=== PATIENT | male | born 1955 | race Caucasian/White ===

== ENCOUNTER 2020-06-28 23:12 | Inpatient (IN) | payer MEDICARE, MEDICAID ==
[~2020-06-28] VITALS: Ht 154.9 cm; Wt 70.5 kg
[2020-06-28] MEDS ORDERED: TRIA1TAB3 PO (23:36)
[2020-06-29] VITALS (14 sets, daily range): BP systolic 96–164; BP diastolic 55–100
[2020-06-29] MEDS ORDERED: CefTRIAXone/D5W-Rocephin 1gm 50 ML IV ONE ×2 (00:05→05:40)
[2020-06-29 00:57] LABS: BASOPHILS # (AUTO) 0.2 X10'3 (0-0.2); BASOPHILS % (AUTO) 1.5 % (0-1); EOSINOPHILS # (AUTO) 0.1 X10'3 (0-0.9); EOSINOPHILS % (AUTO) 1.2 % (0-6); HEMATOCRIT 29.8 % (42.0-52.0); HEMOGLOBIN 10.4 g/dl (14.0-17.9); LYMPHOCYTES % (AUTO) 9.1 % (21-51); MEAN CORPUSCULAR HEMOGLOBIN 37.8 PG (27.0-31.0); MEAN CORPUSCULAR HGB CONC 34.9 g/dL (33.0-36.5); MEAN CORPUSCULAR VOLUME 108.3 FL (78-98); MEAN PLATELET VOLUME 9.9 FL (7.4-10.4); MONOCYTES # (AUTO) 1.3 X10'3 (0-0.9); NEUTROPHILS # (AUTO) 8.6 X10'3 (1.8-7.7); NEUTROPHILS % (AUTO) 76.2 % (42-75); PLATELET COUNT 75 X10'3 (140-440); RED BLOOD COUNT 2.75 X10'6 (4.70-6.10); RED CELL DISTRIBUTION WIDTH 14.6 % (11.5-14.5); WHITE BLOOD COUNT 11.3 X10'3 (4.5-11.0)
[2020-06-29] MEDS ORDERED: magnesium Cl slow-release 64mg tablet PO PRN (01:30)
[2020-06-29] MEDS ORDERED: magnesium 4gm in 100ml NS 100 ML IV PRN (01:30)
[2020-06-29] MEDS ORDERED: magnesium 2GM in 50ml NS 50 ML IV PRN (01:30)
[2020-06-29] MEDS ORDERED: potassium Cl 40MEQ/1/2NS 520ml 520 ML IV PRN ×2 (01:30)
[2020-06-29] MEDS ORDERED: potassium Cl 20 mEq SR tablet PO PRN ×2 (01:30)
[2020-06-29] MEDS: normal saline 1000ml 1,000 ML IV SCH ×3 (02:01→17:28)
[2020-06-29] MEDS: triamterene/HCTZ 37.5/25mg tablet PO SCH (08:00)
[2020-06-29 08:10] LABS: ALANINE AMINOTRANSFERASE 26 U/L (12-78); ALBUMIN 1.8 G/DL (3.4-5.0); ALKALINE PHOSPHATASE 113 IU/L (46-116); ANION GAP 11 (8-16); ASPARTATE AMINO TRANSFERASE 64 U/L (10-37); BILIRUBIN,TOTAL 3.7 MG/DL (0.1-1.0); BLOOD UREA NITROGEN 36 MG/DL (7-18); BUN/CREATININE RATIO 22.1 (5.4-32.0); CALCIUM 7.7 MG/DL (8.5-10.1); CHLORIDE 102 MMOL/L (99-107); CREATININE 1.63 MG/DL (0.60-1.10); GLUCOSE 68 MG/DL (70-104); POTASSIUM 4.2 MMOL/L (3.5-5.1); SODIUM 132 MMOL/L (135-145); TOTAL CARBON DIOXIDE 19.3 MMOL/L (24-32); eGFR 43 ML/MIN
[2020-06-29 08:11] LABS: ALBUMIN/GLOBULIN RATIO 0.3 (1.1-1.5); TOTAL PROTEIN 7.1 G/DL (6.4-8.2)
[2020-06-29] MEDS: K and/or MAG REPLACEMENT MC SCH ×2 (08:29→20:00)
[2020-06-29] MEDS: morphine 2 MG/ML inj. syringe IV PRN (11:34)
--- NOTE | 2020-06-29 12:22 | NUR ---
PT GIVEN BQACK TO YESSENIA BARNETT BY STEVENSON BARNETT CHARGE NURSE.
[2020-06-29] MEDS ORDERED: BUPIVAcaine/PF 2.5 mg/ml (0.25%) 30ml vial ONE (12:32)
[2020-06-29] MEDS ORDERED: LIDOcaine 2% (20mg/ml) 5ml vial ONE (12:50)
[2020-06-29] MEDS ORDERED: neostigmine methylsulfate 1 MG/ML 10ml vial ONE (12:50)
[2020-06-29] MEDS ORDERED: sevoflurane 250ml liquid IH ONE (12:50)
[2020-06-29] MEDS ORDERED: glycopyrrolate 0.2mg/ml inj ONE (12:50)
[2020-06-29] MEDS ORDERED: midazolam 1 mg/ML 2ml injection ONE (12:57)
[2020-06-29] MEDS ORDERED: fentaNYL /PF 50mcg/ml 5ml ampule ONE (12:57)
[2020-06-29] MEDS ORDERED: ondansetron/PF 4mg/2ml inj IV PRN (13:30)
[2020-06-29] MEDS ORDERED: morphine 2 MG/ML inj. syringe IV PRN (13:30)
[2020-06-29] MEDS ORDERED: ringers solution, lacted 1,000 ML IV SCH (13:30)
[2020-06-29] MEDS ORDERED: proCHLORperazine 10 MG/2 ml inj IV PRN (13:30)
[2020-06-29] MEDS ORDERED: morphine 4 MG/ML inj SYRINge IV PRN (13:30)
[2020-06-29] MEDS ORDERED: meperidine/PF 25mg/ml syringe IV PRN ×3 (13:30)
[2020-06-29] MEDS ORDERED: propofol inj 20 ML IV ONE (13:59)
[2020-06-29] MEDS ORDERED: rocuronium 10mg/ml inj IV ONE (13:59)
--- NOTE | 2020-06-29 14:55 | NUR ---
PATIENT HAS MET ALL CRITERIA FOR TRANSFER TO THE SURGICAL/[facility]/PCU/ORTHO/ICU FLOOR. VSS. DRESSINGS INTACT. BED LOW, CALL LIGHT PRESENT AND 2 RAILS UP. RN PRESENT TO ACCEPT CARE OF PATIENT AND REPORT HAS BEEN CALLED. ALL QUESTIONS ANSWERED TO ACCEPTING ANIBAL LITTLEJOHN. PAIN AT 1-2, PATIENT VSS. CARE TURNED OVER TO ANIBAL LITTLEJOHN. Addendum: 06/29/20 at 1518 by Omar Winkler - ANIBAL BARNETT Amended: Links added.
--- NOTE | 2020-06-29 15:20 | NUR ---
Received report from ANIBAL Nelson in recovery. Addendum: 06/29/20 at 1916 by Robert Pope RN Patient on 3L of O2 and satting at 93. Given 4mg of morphine and is sleeping hard. ESBL of 50ml. Patient is covid negative. Patient vitals are BP138/71 HR 105 Resp 15. Patient arrived asleep and slow to wake. He is oriented once he wakes and is a pleasant patient.
--- NOTE | 2020-06-29 18:00 | NUR ---
Problems reprioritized. Patient report given, questions answered & plan of care reviewed with ANIBAL Painter.
--- NOTE | 2020-06-29 18:30 | NUR ---
Patient in room [facility]. I have received report from BORIS BARNETT and had the opportunity to ask questions and assume patient care.
[2020-06-30] VITALS: BP 110/74
[2020-06-30] MEDS: normal saline 1000ml 1,000 ML IV SCH ×2 (03:05→14:21)
[2020-06-30 05:52] LABS: BASOPHILS % (AUTO) 0.4 % (0-1); EOSINOPHILS # (AUTO) 0.1 X10'3 (0-0.9); EOSINOPHILS % (AUTO) 1.5 % (0-6); HEMATOCRIT 25.6 % (42.0-52.0); LYMPHOCYTES # (AUTO) 1.5 X10'3 (1.1-4.8); LYMPHOCYTES % (AUTO) 15.7 % (21-51); MEAN CORPUSCULAR HEMOGLOBIN 38.7 PG (27.0-31.0); MEAN CORPUSCULAR VOLUME 110.5 FL (78-98); MEAN PLATELET VOLUME 9.8 FL (7.4-10.4); MONOCYTES # (AUTO) 1.4 X10'3 (0-0.9); MONOCYTES % (AUTO) 14.8 % (2-12); NEUTROPHILS # (AUTO) 6.5 X10'3 (1.8-7.7); NEUTROPHILS % (AUTO) 67.6 % (42-75); PLATELET COUNT 71 X10'3 (140-440); RED BLOOD COUNT 2.32 X10'6 (4.70-6.10); RED CELL DISTRIBUTION WIDTH 15.1 % (11.5-14.5); WHITE BLOOD COUNT 9.7 X10'3 (4.5-11.0)
[2020-06-30 06:15] LABS: ALANINE AMINOTRANSFERASE 26 U/L (12-78); ALBUMIN 1.6 G/DL (3.4-5.0); ALBUMIN/GLOBULIN RATIO 0.3 (1.1-1.5); ALKALINE PHOSPHATASE 104 IU/L (46-116); ANION GAP 10 (8-16); ASPARTATE AMINO TRANSFERASE 61 U/L (10-37); BILIRUBIN,TOTAL 3.3 MG/DL (0.1-1.0); BLOOD UREA NITROGEN 36 MG/DL (7-18); BUN/CREATININE RATIO 28.1 (5.4-32.0); CALCIUM 7.5 MG/DL (8.5-10.1); CHLORIDE 108 MMOL/L (99-107); CREATININE 1.28 MG/DL (0.60-1.10); MAGNESIUM 1.9 MG/DL (1.5-2.4); POTASSIUM 4.2 MMOL/L (3.5-5.1); SODIUM 137 MMOL/L (135-145); TOTAL CARBON DIOXIDE 18.6 MMOL/L (24-32); TOTAL PROTEIN 6.4 G/DL (6.4-8.2); eGFR 56 ML/MIN
[2020-06-30 06:18] LABS: GLUCOSE 50 MG/DL (70-104)
--- NOTE | 2020-06-30 06:30 | NUR ---
Problems reprioritized. Patient report given, questions answered & plan of care reviewed with OLVIN BARNETT.
--- NOTE | 2020-06-30 06:40 | NUR ---
PAGED DR. MILLAN FOR GLUCOSE OF 50 AND ASYMPTOMATIC AND WAS GIVEN YOGURT AND JUICE. AWAITING RESPONSE.
[2020-06-30 07:00] VITALS: BP 109/66
[2020-06-30] MEDS: K and/or MAG REPLACEMENT MC SCH ×2 (08:00→19:46)
[2020-06-30] MEDS: triamterene/HCTZ 37.5/25mg tablet PO SCH (09:07)
[2020-06-30] MEDS: CefTRIAXone 2gm/D5W 50ml BAG 50 ML IV SCH (09:07)
--- NOTE | 2020-06-30 09:54 | NUR ---
Patient in room [facility]. I have received report from Dora John RN and had the opportunity to ask questions and assume patient care.
[2020-06-30] MEDS: morphine 2 MG/ML inj. syringe IV PRN (10:59)
[2020-06-30 11:00] VITALS: BP 106/71
[2020-06-30] MEDS ORDERED: magnesium hydroxide 30ml (MOM) UD suspension PO PRN (12:45)
--- NOTE | 2020-06-30 18:13 | NUR ---
Problems reprioritized. Patient report given, questions answered & plan of care reviewed with Dora John RN.
--- NOTE | 2020-06-30 18:30 | NUR ---
Patient in room [facility]. I have received report from OLVIN BARNETT and had the opportunity to ask questions and assume patient care.
[2020-06-30] MEDS: lactobacillus rhamnosus 10,000 MMU CELLS/CAPSULE PO SCH (19:55)
[2020-06-30 20:00] VITALS: BP 115/76
[2020-07-01] VITALS: BP_SYST 118; BP_SYST 139; BP_DIAS 71; BP_DIAS 78
[2020-07-01] MEDS: normal saline 1000ml 1,000 ML IV SCH ×2 (00:33→13:30)
[2020-07-01] MEDS: morphine 2 MG/ML inj. syringe IV PRN ×2 (04:39→11:24)
--- NOTE | 2020-07-01 06:14 | NUR ---
Problems reprioritized. Patient report given, questions answered & plan of care reviewed with ALEJANDRO BARNETT.
[2020-07-01 06:15] LABS: BASOPHILS % (AUTO) 0.5 % (0-1); EOSINOPHILS # (AUTO) 0.2 X10'3 (0-0.9); EOSINOPHILS % (AUTO) 2.2 % (0-6); HEMATOCRIT 24.8 % (42.0-52.0); HEMOGLOBIN 8.9 g/dl (14.0-17.9); LYMPHOCYTES # (AUTO) 1.8 X10'3 (1.1-4.8); LYMPHOCYTES % (AUTO) 18.2 % (21-51); MEAN CORPUSCULAR HEMOGLOBIN 39.3 PG (27.0-31.0); MEAN CORPUSCULAR HGB CONC 35.9 g/dL (33.0-36.5); MEAN CORPUSCULAR VOLUME 109.4 FL (78-98); MEAN PLATELET VOLUME 9.3 FL (7.4-10.4); MONOCYTES # (AUTO) 1.4 X10'3 (0-0.9); MONOCYTES % (AUTO) 14.2 % (2-12); NEUTROPHILS # (AUTO) 6.5 X10'3 (1.8-7.7); NEUTROPHILS % (AUTO) 64.9 % (42-75); PLATELET COUNT 81 X10'3 (140-440); RED BLOOD COUNT 2.27 X10'6 (4.70-6.10); RED CELL DISTRIBUTION WIDTH 15.2 % (11.5-14.5)
[2020-07-01 06:33] LABS: ALANINE AMINOTRANSFERASE 34 U/L (12-78); ALBUMIN 1.6 G/DL (3.4-5.0); ALBUMIN/GLOBULIN RATIO 0.3 (1.1-1.5); ALKALINE PHOSPHATASE 149 IU/L (46-116); ANION GAP 8 (8-16); ASPARTATE AMINO TRANSFERASE 85 U/L (10-37); BILIRUBIN,TOTAL 3.4 MG/DL (0.1-1.0); BLOOD UREA NITROGEN 24 MG/DL (7-18); BUN/CREATININE RATIO 22.2 (5.4-32.0); CALCIUM 7.8 MG/DL (8.5-10.1); CHLORIDE 105 MMOL/L (99-107); CREATININE 1.08 MG/DL (0.60-1.10); GLUCOSE 127 MG/DL (70-104); MAGNESIUM 1.9 MG/DL (1.5-2.4); POTASSIUM 3.8 MMOL/L (3.5-5.1); SODIUM 136 MMOL/L (135-145); TOTAL CARBON DIOXIDE 23.3 MMOL/L (24-32); TOTAL PROTEIN 6.6 G/DL (6.4-8.2); eGFR 68 ML/MIN
[2020-07-01 07:40] VITALS: BP 151/84
[2020-07-01] MEDS: K and/or MAG REPLACEMENT MC SCH ×2 (08:00→20:00)
[2020-07-01] MEDS: lactobacillus rhamnosus 10,000 MMU CELLS/CAPSULE PO SCH ×2 (08:11→20:42)
[2020-07-01] MEDS: triamterene/HCTZ 37.5/25mg tablet PO SCH (08:11)
[2020-07-01] MEDS: CefTRIAXone 2gm/D5W 50ml BAG 50 ML IV SCH (08:11)
--- NOTE | 2020-07-01 15:15 | NUR ---
PAGER ID: [phone] MESSAGE: Jessica BarB: can I get an order for an athletic support/jock strap so patient feels more comfortable ambulating? thanks, [phone]
[2020-07-01] MEDS ORDERED: HYDROcodone/acetaminophen 5mg/325mg tablet PO PRN (15:40)
--- NOTE | 2020-07-01 18:09 | NUR ---
Problems reprioritized. Patient report given, questions answered & plan of care reviewed with ANIBAL Painter.
--- NOTE | 2020-07-01 18:30 | NUR ---
Patient in room [facility]. I have received report from ALEJANDRO BARNETT and had the opportunity to ask questions and assume patient care.
[2020-07-01 20:00] VITALS: BP 149/88
[2020-07-01] MEDS: HYDROcodone/acetaminophen 10/325mg tab PO PRN (20:42)
[2020-07-02] VITALS: BP 142/81
[2020-07-02] MEDS: normal saline 1000ml 1,000 ML IV SCH ×3 (01:43→19:30)
[2020-07-02 05:47] LABS: BASOPHILS # (AUTO) 0.1 X10'3 (0-0.2); EOSINOPHILS # (AUTO) 0.3 X10'3 (0-0.9); EOSINOPHILS % (AUTO) 3.2 % (0-6); HEMATOCRIT 26.5 % (42.0-52.0); HEMOGLOBIN 9.3 g/dl (14.0-17.9); LYMPHOCYTES # (AUTO) 1.7 X10'3 (1.1-4.8); LYMPHOCYTES % (AUTO) 21.4 % (21-51); MEAN CORPUSCULAR HEMOGLOBIN 38.2 PG (27.0-31.0); MEAN CORPUSCULAR HGB CONC 35.1 g/dL (33.0-36.5); MEAN PLATELET VOLUME 9.5 FL (7.4-10.4); MONOCYTES # (AUTO) 1.1 X10'3 (0-0.9); MONOCYTES % (AUTO) 14.3 % (2-12); NEUTROPHILS # (AUTO) 4.8 X10'3 (1.8-7.7); NEUTROPHILS % (AUTO) 60.1 % (42-75); PLATELET COUNT 76 X10'3 (140-440); RED BLOOD COUNT 2.43 X10'6 (4.70-6.10); RED CELL DISTRIBUTION WIDTH 14.7 % (11.5-14.5); WHITE BLOOD COUNT 7.9 X10'3 (4.5-11.0)
[2020-07-02 06:13] LABS: ALANINE AMINOTRANSFERASE 35 U/L (12-78); ALBUMIN 1.6 G/DL (3.4-5.0); ALBUMIN/GLOBULIN RATIO 0.3 (1.1-1.5); ALKALINE PHOSPHATASE 133 IU/L (46-116); ANION GAP 8 (8-16); ASPARTATE AMINO TRANSFERASE 83 U/L (10-37); BILIRUBIN,TOTAL 3.6 MG/DL (0.1-1.0); BLOOD UREA NITROGEN 17 MG/DL (7-18); BUN/CREATININE RATIO 20.7 (5.4-32.0); CALCIUM 7.4 MG/DL (8.5-10.1); CHLORIDE 107 MMOL/L (99-107); CREATININE 0.82 MG/DL (0.60-1.10); MAGNESIUM 1.7 MG/DL (1.5-2.4); POTASSIUM 4.1 MMOL/L (3.5-5.1); SODIUM 137 MMOL/L (135-145); TOTAL CARBON DIOXIDE 22.1 MMOL/L (24-32); TOTAL PROTEIN 6.7 G/DL (6.4-8.2); eGFR > 90 ML/MIN
[2020-07-02 06:16] LABS: GLUCOSE 83 MG/DL (70-104)
[2020-07-02 06:24] LABS: ANISOCYTOSIS 1+; PLATELET ESTIMATE DECREASED; POLYCHROMASIA FEW; TOTAL CELLS COUNTED 100
[2020-07-02 06:25] LABS: SMUDGE CELLS FEW
--- NOTE | 2020-07-02 06:25 | NUR ---
Problems reprioritized. Patient report given, questions answered & plan of care reviewed with MERRITT BARNETT.
--- NOTE | 2020-07-02 06:40 | NUR ---
Patient in room [facility]. I have received report from ANIBAL Painter and had the opportunity to ask questions and assume patient care.
[2020-07-02 07:00] VITALS: BP 135/77
[2020-07-02] MEDS: K and/or MAG REPLACEMENT MC SCH ×2 (08:00→20:00)
[2020-07-02] MEDS: CefTRIAXone 2gm/D5W 50ml BAG 50 ML IV SCH (08:33)
[2020-07-02] MEDS: lactobacillus rhamnosus 10,000 MMU CELLS/CAPSULE PO SCH ×2 (08:39→20:32)
[2020-07-02] MEDS: triamterene/HCTZ 37.5/25mg tablet PO SCH (08:39)
[2020-07-02] MEDS: HYDROcodone/acetaminophen 10/325mg tab PO PRN ×2 (10:20→20:34)
[2020-07-02 11:00] VITALS: BP 133/82
--- NOTE | 2020-07-02 15:04 | NUR ---
Dr Acosta in to see pt. New order to D/C Wound Vac. Pt may be D/C home tomorrow.
[2020-07-02] MEDS: morphine 2 MG/ML inj. syringe IV PRN (15:24)
--- NOTE | 2020-07-02 18:59 | NUR ---
Wound VAC removed per Md orders. apply Thera honey and pack with alginate dressing covered with ABD and secured with supporter. medicated for pain after procedure. Patient report given, questions answered & plan of care reviewed with ANIBAL Painter.
--- NOTE | 2020-07-02 19:00 | NUR ---
Patient in room [facility]. I have received report from MERRITT BARNETT and had the opportunity to ask questions and assume patient care.
[2020-07-02 20:00] VITALS: BP 132/75
[2020-07-03] VITALS: BP 128/70
[2020-07-03] MEDS: normal saline 1000ml 1,000 ML IV SCH ×3 (02:47→22:36)
[2020-07-03 06:14] LABS: BASOPHILS # (AUTO) 0.1 X10'3 (0-0.2); BASOPHILS % (AUTO) 1.4 % (0-1); EOSINOPHILS # (AUTO) 0.3 X10'3 (0-0.9); EOSINOPHILS % (AUTO) 3.2 % (0-6); HEMATOCRIT 25.9 % (42.0-52.0); LYMPHOCYTES # (AUTO) 1.6 X10'3 (1.1-4.8); LYMPHOCYTES % (AUTO) 20.6 % (21-51); MEAN CORPUSCULAR HEMOGLOBIN 37.6 PG (27.0-31.0); MEAN CORPUSCULAR HGB CONC 34.7 g/dL (33.0-36.5); MEAN CORPUSCULAR VOLUME 108.3 FL (78-98); MEAN PLATELET VOLUME 9.2 FL (7.4-10.4); MONOCYTES % (AUTO) 12.2 % (2-12); NEUTROPHILS # (AUTO) 4.9 X10'3 (1.8-7.7); NEUTROPHILS % (AUTO) 62.6 % (42-75); PLATELET COUNT 74 X10'3 (140-440); RED BLOOD COUNT 2.39 X10'6 (4.70-6.10); WHITE BLOOD COUNT 7.9 X10'3 (4.5-11.0)
[2020-07-03 06:24] LABS: ALANINE AMINOTRANSFERASE 37 U/L (12-78); ALBUMIN 1.5 G/DL (3.4-5.0); ALBUMIN/GLOBULIN RATIO 0.3 (1.1-1.5); ALKALINE PHOSPHATASE 109 IU/L (46-116); ANION GAP 6 (8-16); ASPARTATE AMINO TRANSFERASE 89 U/L (10-37); BILIRUBIN,TOTAL 3.1 MG/DL (0.1-1.0); BLOOD UREA NITROGEN 16 MG/DL (7-18); BUN/CREATININE RATIO 18.6 (5.4-32.0); CALCIUM 7.6 MG/DL (8.5-10.1); CHLORIDE 106 MMOL/L (99-107); CREATININE 0.86 MG/DL (0.60-1.10); GLUCOSE 90 MG/DL (70-104); MAGNESIUM 1.8 MG/DL (1.5-2.4); POTASSIUM 4.2 MMOL/L (3.5-5.1); SODIUM 135 MMOL/L (135-145); TOTAL CARBON DIOXIDE 22.7 MMOL/L (24-32); TOTAL PROTEIN 6.5 G/DL (6.4-8.2); eGFR 89 ML/MIN
--- NOTE | 2020-07-03 06:28 | NUR ---
Problems reprioritized. Patient report given, questions answered & plan of care reviewed with TONYA BARNETT.
--- NOTE | 2020-07-03 06:34 | NUR ---
Patient in room [facility]. I have received report from Inocencio BARNETT and had the opportunity to ask questions and assume patient care.
[2020-07-03 07:27] VITALS: BP 132/74
[2020-07-03] MEDS: CefTRIAXone 2gm/D5W 50ml BAG 50 ML IV SCH (07:40)
[2020-07-03] MEDS: lactobacillus rhamnosus 10,000 MMU CELLS/CAPSULE PO SCH ×2 (07:42→20:52)
[2020-07-03] MEDS: triamterene/HCTZ 37.5/25mg tablet PO SCH (07:42)
[2020-07-03] MEDS: K and/or MAG REPLACEMENT MC SCH ×2 (08:00→20:00)
[2020-07-03 09:02] LABS: TOTAL CELLS COUNTED 100
[2020-07-03 09:03] LABS: PLATELET ESTIMATE DECREASED
[2020-07-03 09:04] LABS: POLYCHROMASIA FEW
[2020-07-03 11:00] VITALS: BP 144/91
--- NOTE | 2020-07-03 14:27 | NUR ---
Spoke to patient's significant other Amparo on the phone. She was asking if patient going home today and what really the discharge plan as patient was assuming he is going home today. I told her that per CM's notes, referrals were sent to [facility] probably because there was no services in [place] and that patient need a skilled nurse or doctor to oversee the wound care when patient is discharged. She is suggesting [facility]. I told her that we will need to follow up about this tomorrow as today is Saturday. I told her that we should have no problem patient following up at a local clinic if the clinic can perform wound care for the type of wound patient has if we can't get a home health nurse to do it at their home. She agreed about the follow up on this tomorrow.
[2020-07-03] MEDS: ondansetron/PF 4mg/2ml inj IV PRN (14:33)
--- NOTE | 2020-07-03 17:50 | NUR ---
patient given zofran for nausea with effect. seen by Dr george.. wound changed . patient appears stable is for probable DC in am
--- NOTE | 2020-07-03 18:21 | NUR ---
Problems reprioritized. Patient report given, questions answered & plan of care reviewed with kamlesh BARNETT.
--- NOTE | 2020-07-03 18:41 | NUR ---
Patient in room [facility]. I have received report from TONYA BARNETT and had the opportunity to ask questions and assume patient care. Addendum: 07/03/20 at 1842 by Linda Simpson RN Amended: Links added.
[2020-07-03 19:30] VITALS: BP 141/86
--- NOTE | 2020-07-03 21:00 | NUR ---
pt aake at this time no s&s of distress. dressing to scrotal area dry and intact.
--- NOTE | 2020-07-03 23:25 | NUR ---
pt resting eyes closed without changes.
[2020-07-03 23:34] VITALS: BP 121/73
[2020-07-04] MEDS: HYDROcodone/acetaminophen 10/325mg tab PO PRN ×2 (05:23→12:02)
[2020-07-04] MEDS: ondansetron/PF 4mg/2ml inj IV PRN ×2 (05:27→12:02)
--- NOTE | 2020-07-04 05:28 | NUR ---
0450 up with assist to bedside commode for med sized soft brown stool and void 500cc of clear yellow urine.
[2020-07-04 06:01] LABS: BASOPHILS # (AUTO) 0.1 X10'3 (0-0.2); BASOPHILS % (AUTO) 0.7 % (0-1); EOSINOPHILS # (AUTO) 0.3 X10'3 (0-0.9); EOSINOPHILS % (AUTO) 3.1 % (0-6); HEMATOCRIT 25.6 % (42.0-52.0); LYMPHOCYTES # (AUTO) 2.4 X10'3 (1.1-4.8); LYMPHOCYTES % (AUTO) 22.2 % (21-51); MEAN CORPUSCULAR HEMOGLOBIN 38.6 PG (27.0-31.0); MEAN CORPUSCULAR HGB CONC 35.2 g/dL (33.0-36.5); MEAN CORPUSCULAR VOLUME 109.8 FL (78-98); MEAN PLATELET VOLUME 9.4 FL (7.4-10.4); MONOCYTES # (AUTO) 1.2 X10'3 (0-0.9); MONOCYTES % (AUTO) 11.2 % (2-12); NEUTROPHILS # (AUTO) 6.7 X10'3 (1.8-7.7); NEUTROPHILS % (AUTO) 62.8 % (42-75); PLATELET COUNT 88 X10'3 (140-440); RED BLOOD COUNT 2.33 X10'6 (4.70-6.10); RED CELL DISTRIBUTION WIDTH 14.9 % (11.5-14.5); WHITE BLOOD COUNT 10.7 X10'3 (4.5-11.0)
[2020-07-04 06:10] LABS: ALANINE AMINOTRANSFERASE 39 U/L (12-78); ALBUMIN 1.6 G/DL (3.4-5.0); ALBUMIN/GLOBULIN RATIO 0.3 (1.1-1.5); ALKALINE PHOSPHATASE 150 IU/L (46-116); ANION GAP 5 (8-16); ASPARTATE AMINO TRANSFERASE 94 U/L (10-37); BILIRUBIN,TOTAL 2.7 MG/DL (0.1-1.0); BLOOD UREA NITROGEN 12 MG/DL (7-18); BUN/CREATININE RATIO 14.1 (5.4-32.0); CALCIUM 7.7 MG/DL (8.5-10.1); CHLORIDE 106 MMOL/L (99-107); CREATININE 0.85 MG/DL (0.60-1.10); MAGNESIUM 1.7 MG/DL (1.5-2.4); POTASSIUM 4.1 MMOL/L (3.5-5.1); SODIUM 135 MMOL/L (135-145); TOTAL CARBON DIOXIDE 24.2 MMOL/L (24-32); eGFR 90 ML/MIN
--- NOTE | 2020-07-04 06:11 | NUR ---
Problems reprioritized. Patient report given, questions answered & plan of care reviewed with OLVIN BARNETT. Addendum: 07/04/20 at 0611 by Linda Simpson RN Amended: Links added.
[2020-07-04 06:12] LABS: GLUCOSE 101 MG/DL (70-104)
--- NOTE | 2020-07-04 06:38 | NUR ---
Patient in room [facility]. I have received report from Linda BARNETT and had the opportunity to ask questions and assume patient care.
[2020-07-04 07:00] VITALS: BP 128/82
[2020-07-04 07:10] LABS: TOTAL CELLS COUNTED 100
[2020-07-04 07:13] LABS: PLATELET ESTIMATE DECREASED; POLYCHROMASIA FEW; SMUDGE CELLS FEW
[2020-07-04] MEDS: K and/or MAG REPLACEMENT MC SCH (08:00)
[2020-07-04] MEDS: triamterene/HCTZ 37.5/25mg tablet PO SCH (08:52)
[2020-07-04] MEDS: normal saline 1000ml 1,000 ML IV SCH (08:52)
[2020-07-04] MEDS: lactobacillus rhamnosus 10,000 MMU CELLS/CAPSULE PO SCH (08:52)
[2020-07-04] MEDS: CefTRIAXone 2gm/D5W 50ml BAG 50 ML IV SCH (08:52)
[2020-07-04] MEDS ORDERED: HYDR-3964 PO (09:03)
[2020-07-04] MEDS ORDERED: LEVO500T89 PO (09:03)
[2020-07-04 11:00] VITALS: BP 136/76
--- NOTE | 2020-07-04 16:21 | NUR ---
Patient and spouse were educated on follow-up, medications, worsening symptoms, and were shown a demonstration for dressing changes. Iv was removed and canula was intact. Patient was taken by wheel chair to vehicle.
== END 2020-07-04 14:35 | disposition home health service (06) | DRG 711 ==
LOC: ER 23:12 → ED HOLD 06-29 01:26 → SUR 3N 06-29 15:12
PROVIDERS: ADMIT Family Medicine; ATTEND Family Medicine
PROC: 0VB90ZZ Excision of Right Testis, Open Approach (ICD-10-PCS; 2020-06-29)
PROC: 0JBC0ZZ Excision of Pelvic Region Subcutaneous Tissue and Fascia, Open Approach (ICD-10-PCS; 2020-06-29)
PROC: 0V950ZZ Drainage of Scrotum, Open Approach (ICD-10-PCS; 2020-06-29)
PROC: 0VT90ZZ Resection of Right Testis, Open Approach (ICD-10-PCS; principal; 2020-06-29 12:50)
DX: N45.4 Abscess of epididymis or testis (principal); R18.8 Other ascites; N17.9 Acute kidney failure, unspecified; K74.60 Unspecified cirrhosis of liver; N45.1 Epididymitis; I10 Essential (primary) hypertension; N45.3 Epididymo-orchitis
CPT/HCPCS: 36415; 71045; 80053; 82948; 83605; 83735; 85007; 85025; 87070; 87075; 87077; 87081; 87186; 93005; 96365; 99285; A4618; A6550; A7000; G0378; J0696; J2001; J2250; J2270; J2405; J2704; J2710; J3010; J3490; J7030; J7120

== ENCOUNTER 2020-07-28 11:14 | Emergency (ER) | payer MEDICARE, MEDICAID ==
[~2020-07-28] VITALS: Ht 180.3 cm; Wt 80.9 kg
[~2020-07-28 11:14] MED LIST: HYDR-3964 PO; LEVO500T89 PO; TRIA1TAB3 PO
[2020-07-28 11:59] VITALS: BP 131/79
[2020-07-28 13:08] LABS: EOSINOPHILS # (AUTO) 0.2 X10'3 (0-0.9); EOSINOPHILS % (AUTO) 4.7 % (0-6); HEMATOCRIT 29.7 % (42.0-52.0); HEMOGLOBIN 10.3 g/dl (14.0-17.9); LYMPHOCYTES # (AUTO) 1.7 X10'3 (1.1-4.8); LYMPHOCYTES % (AUTO) 38.7 % (21-51); MEAN CORPUSCULAR HGB CONC 34.5 g/dL (33.0-36.5); MEAN PLATELET VOLUME 8.7 FL (7.4-10.4); MONOCYTES # (AUTO) 0.5 X10'3 (0-0.9); MONOCYTES % (AUTO) 12.3 % (2-12); NEUTROPHILS # (AUTO) 1.9 X10'3 (1.8-7.7); NEUTROPHILS % (AUTO) 43.3 % (42-75); PLATELET COUNT 58 X10'3 (140-440); WHITE BLOOD COUNT 4.4 X10'3 (4.5-11.0)
[2020-07-28 13:22] LABS: ALANINE AMINOTRANSFERASE 17 U/L (12-78); ALBUMIN 1.9 G/DL (3.4-5.0); ALBUMIN/GLOBULIN RATIO 0.4 (1.1-1.5); ALKALINE PHOSPHATASE 156 IU/L (46-116); ANION GAP 7 (8-16); ASPARTATE AMINO TRANSFERASE 38 U/L (10-37); BILIRUBIN,TOTAL 3.6 MG/DL (0.1-1.0); BLOOD UREA NITROGEN 12 MG/DL (7-18); BUN/CREATININE RATIO 14.5 (5.4-32.0); CALCIUM 8.1 MG/DL (8.5-10.1); CHLORIDE 105 MMOL/L (99-107); CREATININE 0.83 MG/DL (0.60-1.10); LIPASE 98 U/L (73-393); POTASSIUM 3.7 MMOL/L (3.5-5.1); SODIUM 138 MMOL/L (135-145); TOTAL PROTEIN 7.3 G/DL (6.4-8.2); eGFR > 90 ML/MIN
[2020-07-28 13:42] LABS: PLATELET ESTIMATE DECREASED
[2020-07-28 13:43] LABS: ANISOCYTOSIS 1+
[2020-07-28 13:48] LABS: GLUCOSE 104 MG/DL (70-104)
== END 2020-07-28 14:19 | disposition home or self-care (01) ==
LOC: ER 11:14
DX: K75.9 Inflammatory liver disease, unspecified (principal); D61.818 Other pancytopenia; K72.10 Chronic hepatic failure without coma; R18.8 Other ascites; R10.84 Generalized abdominal pain; F12.90 Cannabis use, unspecified, uncomplicated; Z86.19 Personal history of other infectious and parasitic diseases; Z72.89 Other problems related to lifestyle; Z79.2 Long term (current) use of antibiotics; Z79.899 Other long term (current) drug therapy
CPT/HCPCS: 36415; 76705; 80053; 83690; 85008; 85025; 99284